=== PATIENT | male | born 1990 | race Caucasian/White ===

== ENCOUNTER 2017-04-28 17:41 | Emergency (ER) | payer SELFPAY ==
--- NOTE | 2017-04-28 17:53 | ED PDOC ---
Arrival/HPI - General Chief Complaint: ENT Problem Time Seen by Provider: 04/28/17 17:44 Historian: Patient - History of Present Illness Narrative History of Present Illness (Text): 04/28/17 17:54 26-year-old male presents today with a four-day history of right-sided ear pain. Patient states 4 days ago the pain was in both ears over the past few days the pain as localized only to the right ear. She denies fevers or chills. Complaining of decreased hearing in the ear. Denies any trauma or injury. No medications have been taken for pain at home. Denies nasal congestion sore throat or cough. No vomiting. No other complaints Time/Duration: Other (4 days) Symptom Onset: Gradual Symptom Course: Worsening Quality: Pressure, Stabbing, Throbbing Severity Level: 8 Past Medical History - Provider Review Nursing Documentation Reviewed: Yes - Travel History Have you recently traveled outside [place] w/in the past 3 mons?: No - Tetanus Immunization Tetanus Immunization: Unknown - Psychiatric Hx Substance Use: No - Anesthesia Hx Anesthesia: No Hx Anesthesia Reactions: No Hx Malignant Hyperthermia: No Family/Social History - Physician Review Nursing Documentation Reviewed: Yes Family/Social History: Unknown Family HX Smoking Status: Never Smoked Hx Alcohol Use: No Hx Substance Use: No Allergies/Home Meds Allergies/Adverse Reactions: Allergies banana Allergy (Verified 08/27/16 02:52) DIARRHEA FISH Allergy (Verified 08/27/16 02:52) RASH milk Allergy (Verified 08/27/16 02:52) ANAPHYLAXIS Review of Systems - Review of Systems Constitutional: absent: Fatigue, Fevers ENT: Hearing Changes (Right sided decreased hearing), Sinus Congestion, Other ( Right earache). absent: Sore Throat Respiratory: absent: SOB, Cough Cardiovascular: absent: Chest Pain, Palpitations Gastrointestinal: absent: Abdominal Pain, Diarrhea, Nausea, Vomiting Genitourinary Male: absent: Dysuria Musculoskeletal: absent: Arthralgias Skin: absent: Rash, Pruritis Neurological: absent: Headache, Dizziness Psychiatric: absent: Anxiety, Depression Physical Exam Vital Signs Reviewed: Yes Temperature: Afebrile Blood Pressure: Normal Pulse: Regular Respiratory Rate: Normal Appearance: Positive for: Well-Appearing, Non-Toxic, Comfortable Pain Distress: None Mental Status: Positive for: Alert and Oriented X 3 - Systems Exam Head: Present: Atraumatic Conjunctiva: Present: Normal Ears: Present: Other (No mastoid tenderness erythema or edema). No: NORMAL TM ( Right TM is obstructed by cerumen), Erythema Mouth: Present: Moist Mucous Membranes, Normal Tounge, Normal Teeth. No: Dry, Drooling, Trismus Pharnyx: Present: Normal. No: ERYTHEMA, EXUDATE Nose (External): Present: Atraumatic Nose (Internal): Present: Normal Inspection Neck: Present: Normal Range of Motion, Trachea Midline. No: Meningeal Signs, Lymphadenopathy Respiratory/Chest: Present: Clear to Auscultation, Good Air Exchange. No: Respiratory Distress, Accessory Muscle Use Cardiovascular: Present: Regular Rate and Rhythm, Normal S1, S2. No: Murmurs Neurological: Present: GCS=15 Skin: Present: Warm, Dry, Normal Color. No: Rashes Psychiatric: Present: Alert, Oriented x 3 Medical Decision Making ED Course and Treatment: 04/28/17 17:56 Patient is nontoxic well appearing in no distress. Vital signs are stable Toradol, amoxicillin I advised follow up with primary care physician within the next 2 days, advised to increase fluids take medications as prescribed and return if symptoms worsen persist or if new symptoms develop. Advised follow-up with ENT specialist within the next 2 days Patient verbalizes understanding of discharge instructions and need for immediate followup. all aspects of this case were discussed the attending of record. IMPRESSION; cerumen impaction, otitis media Motrin every 6 hours as needed for pain/fever reduction Increase fluids amoxicillin 3 times daily x 10 days debrox; apply 5-10 drops in the affected ear twice daily x 4 days. Follow up primary care physician within the next 2 days Follow up with the ENt specialist within the next 2 days. Return if symptoms worsen persist or if the symptoms develop Disposition/Present on Arrival - Present on Arrival Any Indicators Present on Arrival: No History of DVT/PE: No History of Uncontrolled Diabetes: No Urinary Catheter: No History of Decub. Ulcer: No History Surgical Site Infection Following: None - Disposition Have Diagnosis and Disposition been Completed?: Yes Diagnosis: Otitis media, Cerumen impaction Disposition: HOME/ ROUTINE Disposition Time: 17:50 Patient Plan: Discharge Condition: GOOD Discharge Instructions (ExitCare): Cerumen Impaction (ED), Otitis Media (ED) Additional Instructions: Motrin every 6 hours as needed for pain/fever reduction Increase fluids amoxicillin 3 times daily x 10 days debrox; apply 5-10 drops in the affected ear twice daily x 4 days. Follow up primary care physician within the next 2 days Follow up with the ENt specialist within the next 2 days. Return if symptoms worsen persist or if the symptoms develop Prescriptions: Amoxicillin 500 mg PO TID #30 tab Carbamide Peroxide [Debrox] 5 drop AD BID #1 bottle Ibuprofen [Motrin] 600 mg PO Q6H PRN #20 tab PRN Reason: pain/fever reduction Referrals: Chuck Monique DO [Staff Provider] - Follow up with primary [facility] [Outside] - Follow up with primary Jose Adams MD [Staff Provider] - Follow up with primary Forms: WORK NOTE
[2017-04-28 18:02] VITALS: RESP 20
[2017-04-28 18:47] VITALS: BP 117/71; PULSE 82; TEMP 98.3; O2SAT 99
== END 2017-04-28 18:48 | disposition home or self-care (01) ==
LOC: ED 17:41
DX: H66.90 Otitis media, unspecified, unspecified ear (principal); H61.20 Impacted cerumen, unspecified ear
CPT/HCPCS: 96372; 99283; J1885